=== PATIENT | female | born 1975 | race Caucasian/White ===

== ENCOUNTER 2017-06-17 10:12 | Emergency (ER) | payer BC ==
[2017-06-17] MEDS ORDERED: ONDANSETRON HCL IV 4 MG/2 ML VIAL IVP ONE (10:44)
[2017-06-17] MEDS ORDERED: HYDROMORPHONE HCL 2 MG/ML VIAL IVP ONE (10:50)
[2017-06-17] MEDS ORDERED: 0.9 % SODIUM CHLORIDE 1,000 ML BAG IV ONE (10:51)
[2017-06-17 11:08] LABS: BASO % 0.2 % (0-6); HEMATOCRIT 40.9 % (35.0-47.0); HEMOGLOBIN 14.2 gm/dl (11.6-16.0); LYMPH % 5.6 % (16-45); MEAN CELL VOLUME 80.4 fl (81-97); MEAN CORPUSCULAR HEMOGLOBIN 27.9 pg (27-33); MEAN CORPUSCULAR HGB CONC 34.7 g/dl (32-36); MEAN PLATELET VOLUME 9.5 fl (7.4-10.4); MONO % 2.4 % (0-9); PLATELET COUNT 370 K/uL (130-400); RED BLOOD COUNT 5.09 M/uL (3.80-5.40); RED CELL DISTRIBUTION WIDTH 14.1 % (11.5-14.5); WHITE BLOOD COUNT W/O DIFF 12.8 K/uL (4.2-12.2)
[2017-06-17 11:33] LABS: ALBUMIN 4.4 g/dL (4.0-5.0)
[2017-06-17 11:34] LABS: ALB/GLOB RATIO 1.5 (1.1-1.8); ALKALINE PHOSPHATASE 64 U/L (35-104); ALT/SGPT 46 U/L (<33); AST/SGOT 25 U/L (10.0-35.0); BLOOD UREA NITROGEN 10 mg/dL (6-20); CREATININE 0.9 mg/dL (0.5-0.9); EST GLOMERULAR FILTRATION RATE > 60 mL/min; GLUCOSE,RANDOM 161 mg/dL (74-109); LIPASE 26 U/L (13-60); TOTAL PROTEIN 7.4 g/dL (6.6-8.7)
[2017-06-17 11:57] LABS: URINE APPEARANCE CLOUDY; URINE BILIRUBIN SMALL (NEGATIVE); URINE BLOOD LARGE (NEGATIVE); URINE COLOR YELLOW; URINE GLUCOSE (UA) NEGATIVE (NEGATIVE); URINE LEUKOCYTE ESTERASE NEGATIVE (NEGATIVE); URINE NITRITE NEGATIVE (NEGATIVE); URINE PROTEIN TRACE (NEGATIVE); URINE UROBILINOGEN 0.2 E.U./dL (0.20 - 1.00)
[2017-06-17 12:02] LABS: HCG,QUALITATIVE URINE NEGATIVE (NEGATIVE); URINE KETONE 80 mg/dL (NEGATIVE)
[2017-06-17 12:10] LABS: URINE BACTERIA NONE SEEN; URINE EPITHELIAL CELLS 0 - 2 (FEW); URINE WBC NONE SEEN (0-2/hpf)
[2017-06-17] MEDS ORDERED: KETOROLAC 30 MG/ML VIAL IVP ONE (13:21)
--- NOTE | 2017-06-17 13:36 | Emergency Department Record ---
History of Present Illness - General Chief Complaint: Abdominal Pain Stated Complaint: RIGHT SIDE ABD PAIN Time Seen by Provider: 06/17/17 10:47 Source: Patient Mode of Arrival: Ambulatory Limitations: No limitations - History of Present Illness Initial Comments: pt has been sick all week w coughing and congestion when today she developed r lower quadrant pain MD Complaint: Abdominal pain Onset/Timin -: Awoke with symptoms Location: RLQ Severity scale (1-10): 8 Quality: Dull, Other Consistency: Constant Improves With: Nothing Worsens With: Nothing Associated Symptoms: Nausea, Vomiting - Related Data Patient : No Home Medications Medication Instructions Recorded Confirmed Last Taken Butalb/Acetaminophen/Caffeine 1 each PO ASDIR PRN 06/17/17 06/17/17 06/12/17 [Fioricet 50-300-40 mg Capsule] Pantoprazole Sodium [Protonix] 40 mg PO BID 06/17/17 06/17/17 06/12/17 Rizatriptan Benzoate [Maxalt] 10 mg PO ASDIR PRN 06/17/17 06/17/17 06/12/17 Topiramate [Topamax] 50 mg PO QHS 06/17/17 06/17/17 06/12/17 Allergies Allergy/AdvReac Type Severity Reaction Status Date / Time No Known Drug Allergies Allergy Verified 06/17/17 10:40 Travel Screening - Travel/Exposure Within Last 30 Days Have you traveled within the last 30 days?: No - Travel/Exposure Within Last Year Have you traveled outside the [place] in the last year?: No - Additonal Travel Details Have you been exposed to anyone with a communicable illness?: No - Travel Symptoms Symptom Screening: None Review of Systems Reviewed: No additional complaints except as noted below Constitutional: Reports: As per HPI. Denies: Chills, Fever, Malaise, Night sweats, Weakness, Weight change Eyes: Reports: As per HPI. Denies: Eye discharge, Eye pain, Photophobia, Vision change ENT: Reports: As per HPI. Denies: Congestion, Dental pain, Ear pain, Epistaxis , Hearing loss, Throat pain Respiratory: Reports: As per HPI. Denies: Cough, Dyspnea, Hemoptysis, Stridor, Wheezes Cardiovascular: Reports: As per HPI. Denies: Arrhythmia, Chest pain, Dyspnea on exertion, Edema, Murmurs, Orthopnea, Palpitations, Paroxysmal nocturnal dyspnea, Rheumatic Fever, Syncope Endocrine: Reports: As per HPI. Denies: Fatigue, Heat or cold intolerance, Polydipsia, Polyuria Gastrointestinal: Reports: As per HPI. Denies: Abdominal pain, Constipation, Diarrhea, Hematemesis, Hematochezia, Melena, Nausea, Vomiting Genitourinary: Reports: As per HPI. Denies: Abnormal menses, Discharge, Dyspareunia, Dysuria, Frequency, Hematuria, Incontinence, Retention, Urgency Musculoskeletal: Reports: As per HPI. Denies: Arthralgia, Back pain, Gout, Joint swelling, Myalgia, Neck pain Skin: Reports: As per HPI. Denies: Bruising, Change in color, Change in hair/ nails, Lesions, Pruritus, Rash Neurological: Reports: As per HPI. Denies: Abnormal gait, Confusion, Headache, Numbness, Paresthesias, Seizure, Tingling, Tremors, Vertigo, Weakness Psychiatric: Reports: As per HPI. Denies: Anxiety, Auditory hallucinations, Depression, Homicidal thoughts, Suicidal thoughts, Visual hallucinations Hematological/Lymphatic: Reports: As per HPI. Denies: Anemia, Blood Clots, Easy bleeding, Easy bruising, Swollen glands Past Medical History - SOCIAL HISTORY Smoking Status: Never smoker Alcohol Use: Rare Drug Use: None - RESPIRATORY Hx Respiratory Disorders: No - CARDIOVASCULAR Hx Cardio Disorders: No - NEURO Hx Neuro Disorders: Yes Hx Headaches: Yes - GI Hx GI Disorders: Yes Hx Reflux: Yes - Hx Genitourinary Disorders: No - ENDOCRINE Hx Endocrine Disorders: No - MUSCULOSKELETAL Hx Musculoskeletal Disorders: No - PSYCH Hx Psych Problems: No - HEMATOLOGY/ONCOLOGY Hx Hematology/Oncology Disorders: No Family Medical History Any Significant Family History?: No Hx Stroke: Father Physical Exam - General General Appearance: Alert, Oriented x3, Cooperative, Mild distress - Head Head exam: Normal inspection - Eye Eye exam: Normal appearance, PERRL, EOMI Pupils: Normal accommodation - ENT ENT exam: Normal exam, Mucous membranes moist, Normal external ear exam, Normal orophraynx Ear exam: Normal external inspection. negative: External canal tenderness Nasal Exam: Normal inspection. negative: Discharge, Sinus tenderness Mouth exam: Normal external inspection, Tongue normal Teeth exam: Normal inspection. negative: Dental caries Throat exam: Normal inspection. negative: Tonsillar erythema, Tonsillar exudate - Neck Neck exam: Normal inspection, Full ROM. negative: Tenderness - Respiratory Respiratory exam: Normal lung sounds bilaterally. negative: Respiratory distress - Cardiovascular Cardiovascular Exam: Regular rate, Normal rhythm, Normal heart sounds - GI/Abdominal GI/Abdominal exam: Soft, Normal bowel sounds, Tenderness (rlq) - Rectal Rectal exam: Deferred - exam: Deferred - Extremities Extremities exam: Normal inspection, Full ROM, Normal capillary refill. negative: Tenderness - Back Back exam: Reports: Normal inspection, Full ROM. Denies: Muscle spasm, Rash noted, Tenderness - Neurological Neurological exam: Alert, CN II-XII intact, Normal gait, Oriented X3 - Psychiatric Psychiatric exam: Normal affect, Normal mood - Skin Skin exam: Dry, Intact, Normal color, Warm Course Vital Signs 06/17/17 06/17/17 06/17/17 10:14 11:10 12:41 Temperature 98.4 F Pulse Rate 77 Pulse Rate [ 92 H 76 Pulse Ox Probe] Respiratory 20 16 18 Rate Blood Pressure 122/58 Blood Pressure 141/74 129/78 [Left Arm] Pulse Ox 100 96 99 06/17/17 13:10 Temperature Pulse Rate Pulse Rate [ 68 Pulse Ox Probe] Respiratory 16 Rate Blood Pressure Blood Pressure 122/73 [Left Arm] Pulse Ox 98 - Reevaluation(s) Reevaluation #1: 06/17/17 14:05 pt feels much better Medical Decision Making - Lab Data Result diagrams: 06/17/17 10:41 06/17/17 10:41 Lab Results 06/17/17 06/17/17 06/17/17 Range/Units 10:41 10:41 11:54 WBC 12.8 H (4.2-12.2) K/uL RBC 5.09 (3.80-5.40) M/uL Hgb 14.2 (11.6-16.0) gm/dl Hct 40.9 (35.0-47.0) % MCV 80.4 L (81-97) fl MCH 27.9 (27-33) pg MCHC 34.7 (32-36) g/dl RDW 14.1 (11.5-14.5) % Plt Count 370 (130-400) K/uL MPV 9.5 (7.4-10.4) fl Neutrophils % 95.0 H (47-80) % Band Neutrophils % 0.0 (0-5) % Lymphocytes % 5.6 L (16-45) % Monocytes % 2.4 (0-9) % Eosinophils % 0.0 (0-6) % Basophils % 0.2 (0-6) % Lymphocytes 2.0 L (16-45) % Monocytes 3.0 (0-9) % Basophils 0.0 (0-6) % Eosinophil Count 0.0 (0-6) % Sodium 140 (136-145) mmol/L Potassium 3.5 (3.4-4.5) mmol/L Chloride 103 (98-107) mmol/L Carbon Dioxide 18.0 L (22-29) mmol/L Anion Gap 19.0 H (7-16) BUN 10 (6-20) mg/dL Creatinine 0.9 (0.5-0.9) mg/dL Estimated GFR > 60 mL/min Random Glucose 161 H (74-109) mg/dL Calcium 9.7 (8.6-10.0) mg/dL Total Bilirubin 0.50 (0.2-1.0) mg/dL AST 25 (10.0-35.0) U/L ALT 46 H (<33) U/L Alkaline Phosphatase 64 (35-104) U/L Total Protein 7.4 (6.6-8.7) g/dL Albumin 4.4 (4.0-5.0) g/dL Globulin 3.0 (1.4-4.8) gm/dL Albumin/Globulin Ratio 1.5 (1.1-1.8) Lipase 26 (13-60) U/L Urine Color Yellow Urine Appearance Cloudy Urine pH 6.5 (5.0-8.0) Ur Specific [place] 1.020 (1.002-1.030) Urine Protein Trace H (NEGATIVE) Urine Glucose (UA) Negative (NEGATIVE) Urine Ketones 80 mg/dl H (NEGATIVE) Urine Blood Large H (NEGATIVE) Urine Nitrite Negative (NEGATIVE) Urine Bilirubin Small H (NEGATIVE) Urine Urobilinogen 0.2 (0.20 - 1.00) E.U./dL Ur Leukocyte Esterase Negative (NEGATIVE) Urine RBC 7 - 10 (NONE SEEN) Urine WBC None seen (0-2/hpf) Ur Epithelial Cells 0 - 2 (FEW) Urine Bacteria None seen Urine HCG, Qual Negative (NEGATIVE) Disposition Disposition: Discharge Clinical Impression: Renal lithiasis Hydronephrosis Qualifiers: Hydronephrosis type: with ureteral calculous obstruction Qualified Code(s): N13.2 - Hydronephrosis with renal and ureteral calculous obstruction Disposition: Home, Self-Care Condition: (1) Good Instructions: Kidney Stones (ED), How to Strain Your Urine (ED) Additional Instructions: follow up with dr sloan. return sooner if worse. push fluids Referrals: FRANKI WOOD M.D. [MEDICAL DOCTOR] - [facility] Specialty Clinics [Provider Group] Forms: Patient Portal Access Quality - Quality Measures Quality Measures: N/A - Blood Pressure Screening Does Patient Have Any of the Following: No Blood Pressure Classification: Pre-Hypertensive BP Reading Systolic Measurement: 122 Diastolic Measurement: 58 Screening for High Blood Pressure: < Pre-Hypertensive BP, F/U Documented > [ G8950] Pre-Hypertensive Follow-up Interventions: Follow-up with rescreen every year.
--- NOTE | 2017-06-17 14:20 | Emergency Department Record ---
History of Present Illness - General Chief Complaint: Abdominal Pain Stated Complaint: RIGHT SIDE ABD PAIN Time Seen by Provider: 06/17/17 10:47 Source: Patient Mode of Arrival: Ambulatory Limitations: No limitations - History of Present Illness MD Complaint: Abdominal pain Onset/Timin -: Awoke with symptoms Location: RLQ Severity scale (1-10): 8 Quality: Dull, Other Consistency: Constant Improves With: Nothing Worsens With: Nothing Associated Symptoms: Nausea, Vomiting - Related Data Patient : No Home Medications Medication Instructions Recorded Confirmed Last Taken Butalb/Acetaminophen/Caffeine 1 each PO ASDIR PRN 06/17/17 06/17/17 06/12/17 [Fioricet 50-300-40 mg Capsule] Pantoprazole Sodium [Protonix] 40 mg PO BID 06/17/17 06/17/17 06/12/17 Rizatriptan Benzoate [Maxalt] 10 mg PO ASDIR PRN 06/17/17 06/17/17 06/12/17 Topiramate [Topamax] 50 mg PO QHS 06/17/17 06/17/17 06/12/17 Previous Rx's Medication Instructions Recorded Hydrocodone/Acetaminophen [Jakin 1 each PO Q6HR #14 tablet 06/17/17 5-325 Tablet] Allergies Allergy/AdvReac Type Severity Reaction Status Date / Time No Known Drug Allergies Allergy Verified 06/17/17 10:40 Travel Screening - Travel/Exposure Within Last 30 Days Have you traveled within the last 30 days?: No - Travel/Exposure Within Last Year Have you traveled outside the [place] in the last year?: No - Additonal Travel Details Have you been exposed to anyone with a communicable illness?: No - Travel Symptoms Symptom Screening: None Review of Systems Constitutional: Reports: As per HPI. Denies: Chills, Fever, Malaise, Night sweats, Weakness, Weight change Eyes: Reports: As per HPI. Denies: Eye discharge, Eye pain, Photophobia, Vision change ENT: Reports: As per HPI. Denies: Congestion, Dental pain, Ear pain, Epistaxis , Hearing loss, Throat pain Respiratory: Reports: As per HPI. Denies: Cough, Dyspnea, Hemoptysis, Stridor, Wheezes Cardiovascular: Reports: As per HPI. Denies: Arrhythmia, Chest pain, Dyspnea on exertion, Edema, Murmurs, Orthopnea, Palpitations, Paroxysmal nocturnal dyspnea, Rheumatic Fever, Syncope Endocrine: Reports: As per HPI. Denies: Fatigue, Heat or cold intolerance, Polydipsia, Polyuria Gastrointestinal: Reports: As per HPI. Denies: Abdominal pain, Constipation, Diarrhea, Hematemesis, Hematochezia, Melena, Nausea, Vomiting Genitourinary: Reports: As per HPI. Denies: Abnormal menses, Discharge, Dyspareunia, Dysuria, Frequency, Hematuria, Incontinence, Retention, Urgency Musculoskeletal: Reports: As per HPI. Denies: Arthralgia, Back pain, Gout, Joint swelling, Myalgia, Neck pain Skin: Reports: As per HPI. Denies: Bruising, Change in color, Change in hair/ nails, Lesions, Pruritus, Rash Neurological: Reports: As per HPI. Denies: Abnormal gait, Confusion, Headache, Numbness, Paresthesias, Seizure, Tingling, Tremors, Vertigo, Weakness Psychiatric: Reports: As per HPI. Denies: Anxiety, Auditory hallucinations, Depression, Homicidal thoughts, Suicidal thoughts, Visual hallucinations Hematological/Lymphatic: Reports: As per HPI. Denies: Anemia, Blood Clots, Easy bleeding, Easy bruising, Swollen glands Past Medical History - SOCIAL HISTORY Smoking Status: Never smoker Alcohol Use: Rare Drug Use: None - RESPIRATORY Hx Respiratory Disorders: No - CARDIOVASCULAR Hx Cardio Disorders: No - NEURO Hx Neuro Disorders: Yes Hx Headaches: Yes - GI Hx GI Disorders: Yes Hx Reflux: Yes - Hx Genitourinary Disorders: No - ENDOCRINE Hx Endocrine Disorders: No - MUSCULOSKELETAL Hx Musculoskeletal Disorders: No - PSYCH Hx Psych Problems: No - HEMATOLOGY/ONCOLOGY Hx Hematology/Oncology Disorders: No Family Medical History Any Significant Family History?: No Hx Stroke: Father Physical Exam - General Limitations: No limitations Course Vital Signs 06/17/17 06/17/17 06/17/17 10:14 11:10 12:41 Temperature 98.4 F Pulse Rate 77 Pulse Rate [ 92 H 76 Pulse Ox Probe] Respiratory 20 16 18 Rate Blood Pressure 122/58 Blood Pressure 141/74 129/78 [Left Arm] Pulse Ox 100 96 99 06/17/17 13:10 Temperature Pulse Rate Pulse Rate [ 68 Pulse Ox Probe] Respiratory 16 Rate Blood Pressure Blood Pressure 122/73 [Left Arm] Pulse Ox 98 Medical Decision Making - Lab Data Result diagrams: 06/17/17 10:41 06/17/17 10:41 Lab Results 06/17/17 06/17/17 06/17/17 Range/Units 10:41 10:41 11:54 WBC 12.8 H (4.2-12.2) K/uL RBC 5.09 (3.80-5.40) M/uL Hgb 14.2 (11.6-16.0) gm/dl Hct 40.9 (35.0-47.0) % MCV 80.4 L (81-97) fl MCH 27.9 (27-33) pg MCHC 34.7 (32-36) g/dl RDW 14.1 (11.5-14.5) % Plt Count 370 (130-400) K/uL MPV 9.5 (7.4-10.4) fl Neutrophils % 95.0 H (47-80) % Band Neutrophils % 0.0 (0-5) % Lymphocytes % 5.6 L (16-45) % Monocytes % 2.4 (0-9) % Eosinophils % 0.0 (0-6) % Basophils % 0.2 (0-6) % Lymphocytes 2.0 L (16-45) % Monocytes 3.0 (0-9) % Basophils 0.0 (0-6) % Eosinophil Count 0.0 (0-6) % Sodium 140 (136-145) mmol/L Potassium 3.5 (3.4-4.5) mmol/L Chloride 103 (98-107) mmol/L Carbon Dioxide 18.0 L (22-29) mmol/L Anion Gap 19.0 H (7-16) BUN 10 (6-20) mg/dL Creatinine 0.9 (0.5-0.9) mg/dL Estimated GFR > 60 mL/min Random Glucose 161 H (74-109) mg/dL Calcium 9.7 (8.6-10.0) mg/dL Total Bilirubin 0.50 (0.2-1.0) mg/dL AST 25 (10.0-35.0) U/L ALT 46 H (<33) U/L Alkaline Phosphatase 64 (35-104) U/L Total Protein 7.4 (6.6-8.7) g/dL Albumin 4.4 (4.0-5.0) g/dL Globulin 3.0 (1.4-4.8) gm/dL Albumin/Globulin Ratio 1.5 (1.1-1.8) Lipase 26 (13-60) U/L Urine Color Yellow Urine Appearance Cloudy Urine pH 6.5 (5.0-8.0) Ur Specific [place] 1.020 (1.002-1.030) Urine Protein Trace H (NEGATIVE) Urine Glucose (UA) Negative (NEGATIVE) Urine Ketones 80 mg/dl H (NEGATIVE) Urine Blood Large H (NEGATIVE) Urine Nitrite Negative (NEGATIVE) Urine Bilirubin Small H (NEGATIVE) Urine Urobilinogen 0.2 (0.20 - 1.00) E.U./dL Ur Leukocyte Esterase Negative (NEGATIVE) Urine RBC 7 - 10 (NONE SEEN) Urine WBC None seen (0-2/hpf) Ur Epithelial Cells 0 - 2 (FEW) Urine Bacteria None seen Urine HCG, Qual Negative (NEGATIVE) Disposition Clinical Impression: Renal lithiasis Hydronephrosis Qualifiers: Hydronephrosis type: with ureteral calculous obstruction Qualified Code(s): N13.2 - Hydronephrosis with renal and ureteral calculous obstruction Disposition: Home, Self-Care Condition: (1) Good Instructions: Kidney Stones (ED), How to Strain Your Urine (ED) Additional Instructions: follow up with dr sloan. return sooner if worse. push fluids Prescriptions: Hydrocodone/Acetaminophen [Jakin 5-325 Tablet] 1 each PO Q6HR #14 tablet Referrals: [facility] Specialty Clinics [Provider Group] FRANKI WOOD M.D. [MEDICAL DOCTOR] - Forms: Patient Portal Access Quality - Quality Measures Quality Measures: N/A - Blood Pressure Screening Does Patient Have Any of the Following: No Blood Pressure Classification: Pre-Hypertensive BP Reading Systolic Measurement: 122 Diastolic Measurement: 58 Screening for High Blood Pressure: < Pre-Hypertensive BP, F/U Documented > [ G8950] Pre-Hypertensive Follow-up Interventions: Follow-up with rescreen every year.
--- NOTE | 2017-06-18 13:59 | CT SCAN REPORT ---
DATE: 06/17/2017. EXAM: CT SCAN OF THE ABDOMEN AND PELVIS. HISTORY: Right lower quadrant pain. TECHNIQUE: CT of the abdomen and pelvis was performed without oral or intravenous contrast. This limits evaluation of bowel and solid visceral organs. COMPARISON: None. FINDINGS: Limited evaluation of the lung bases is unremarkable. Osseous structures are grossly intact. Small hiatal hernia. Probable fatty infiltrative change to the liver. Status post cholecystectomy. The spleen, adrenal glands, pancreas, and left kidney are unremarkable. Moderate right- sided hydronephrosis and hydroureter with surrounding inflammation secondary to a 2.5 mm right ureterovesical junction calculus. Normal appendix. The urinary bladder is not distended, limiting its evaluation. No free air or free fluid. IMPRESSION: 1. MODERATE RIGHT-SIDED HYDRONEPHROSIS AND HYDROURETER SECONDARY TO A 2.5 MM RIGHT URETEROVESICAL JUNCTION CALCULUS. 2. PROBABLE FATTY INFILTRATIVE CHANGE TO THE LIVER. SMALL HIATAL HERNIA. STATUS POST CHOLECYSTECTOMY. JOB NUMBER: [id number] MTDD
== END 2017-06-17 14:33 | disposition home or self-care (01) ==
LOC: ER 10:12
DX: N13.2 Hydronephrosis with renal and ureteral calculous obstruction (principal); R11.2 Nausea with vomiting, unspecified
CPT/HCPCS: 99284 ×2; 96374; 96375; 96361; 83690; 80053; 81001; 81025; 85027; 74176; J1885; J2405; J1170; J7030